=== PATIENT | male | born 1975 | race Caucasian/White ===

== ENCOUNTER 2018-05-18 14:14 | Inpatient (IN) | payer SELFPAY ==
[2018-05-18 16:47] VITALS: BMI 27.1
--- NOTE | 2018-05-18 17:34 | HP ---
CIWA Score - CIWA Score Nausea/Vomitin Muscle Tremors: 4-Moderate,w/Arms Extend Anxiety: 3 Agitation: 3 Paroxysmal Sweats: 2 Orientation: 0-Oriented Tacttile Disturbances: 0-None Auditory Disturbances: 0-None Visual Disturbances: 0-None Headache: 1-Very Mild CIWA-Ar Total Score: 16 Admission ROS BHS - HPI Chief Complaint: " I am drinking more now, and I can't control it" alcohol withdrawal symptoms Allergies/Adverse Reactions: Allergies Allergy/AdvReac Type Severity Reaction Status Date / Time No Known Allergies Allergy Verified 05/18/18 17:18 History of Present Illness: 42 yo male with hx of alcohol dependence is here voluntarily seeking detox. Patient reports this is his first time seeking treatment. Denies any medical problems or psychiatric dx at this time. Denies suicidal / homicidal ideation, denies any hx of suicide attempt. Denies hx of black outs or seizures. Denies any legal troubles at this time. Exam Limitations: No Limitations - Ebola screening Have you traveled outside of the country in the last 21 days: No Have you had contact with anyone from an Ebola affected area: No Have you been sick,other than usual withdrawal symptoms: No Do you have a fever: No - Review of Systems Constitutional: Chills, Loss of Appetite, Weakness, Unintentional Wgt. Loss (5 lb) EENT: reports: Other (decrease vision left eye) Respiratory: reports: No Symptoms reported Cardiac: reports: No Symptoms Reported GI: reports: Nausea, Poor Appetite, Poor Fluid Intake, Indigestion, Abdominal cramping : reports: No Symptoms Reported Musculoskeletal: reports: No Symptoms Reported Integumentary: reports: No Symptoms Reported Neuro: reports: Headache, Tremors Endocrine: reports: Increased Thirst Hematology: reports: No Symptoms Reported Psychiatric: reports: Judgement Intact, Mood/Affect Appropiate, Orientated x3, Anxious Other Systems: Reviewed and Negative Patient History - Patient Medical History Hx Anemia: No Hx Asthma: No Hx Chronic Obstructive Pulmonary Disease (COPD): No Hx Cancer: No Hx Cardiac Disorders: No Hx Congestive Heart Failure: No Hx Hypertension: No Hx Hypercholesterolemia: No Hx Pacemaker: No HX Cerebrovascular Accident: No Hx Seizures: No Hx Dementia: No Hx Diabetes: No Hx Gastrointestinal Disorders: No Hx Liver Disease: No Hx Genitourinary Disorders: No Hx Sexually Transmitted Disorders: No Hx Renal Disease (ESRD): No Hx Thyroid Disease: No Hx Human Immunodeficiency Virus (HIV): No (reports last tested in 2007 with neg ) Hx Hepatitis C: No Hx Depression: No Hx Suicide Attempt: No Hx Bipolar Disorder: No Hx Schizophrenia: No - Patient Surgical History Past Surgical History: Yes Hx Neurologic Surgery: No Hx Cataract Extraction: No Hx Cardiac Surgery: No Hx Lung Surgery: No Hx Breast Surgery: No Hx Breast Biopsy: No Hx Abdominal Surgery: No Hx Appendectomy: No Hx Cholecystectomy: No Hx Genitourinary Surgery: No Hx Section: No Hx Orthopedic Surgery: No Other Surgical History: fx/lacerated wound, right index finger in 2006 Anesthesia Reaction: No - PPD History Previous Implant?: Yes Documented Results: Negative w/o proof Implanted On Prior [facility] Admission?: No PPD to be Administered?: Yes - Smoking Cessation Smoking history: Former smoker Have you smoked in the past 12 months: No If you are a former smoker, when did you quit?: 20 yrs. ago Hx Chewing Tobacco Use: No Initiated information on smoking cessation: No - Substance & Tx. History Hx Alcohol Use: Yes Hx Substance Use: Yes Substance Use Type: Alcohol Hx Substance Use Treatment: No - Substances Abused Alcohol-beerwhisky Route: Oral Frequency: Daily Amount used: 1 pt. Age of first use: 14 Date of Last Use: 05/16/18 Family Disease History - Family Disease History Family History: Denies Admission Physical Exam BHS - Vital Signs Vital Signs: Vital Signs - 24 hr 05/18/18 16:46 Temperature 98.7 F Pulse Rate 116 H Respiratory 18 Rate Blood Pressure 148/102 H - Physical General Appearance: Yes: Appropriately Dressed, Thin, Tremorous, Sweating HEENTM: Yes: EOMI, Hearing grossly Normal, Normal ENT Inspection, Normocephalic , Normal Voice, DEANNA, Pharynx Normal, Tm's normal, Other (left eye decrease vision) Respiratory: Yes: Chest Non-Tender, Lungs Clear, Normal Breath Sounds, No Respiratory Distress, No Accessory Muscle Use Neck: Yes: Within Normal Limits Breast: Yes: Breast Exam Deferred Cardiology: Yes: Regular Rhythm, Tachycardia Abdominal: Yes: Normal Bowel Sounds, Non Tender, Flat, Soft Genitourinary: Yes: Within Normal Limits Back: Yes: Normal Inspection Musculoskeletal: Yes: full range of Motion, Gait Steady, Pelvis Stable Extremities: Yes: Normal Capillary Refill, Normal Inspection, Normal Range of Motion, Non-Tender 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, Fully Oriented, Alert, Motor Strength 5/5, Depressed Affect Integumentary: Yes: Normal Color, Warm, Diaphoresis Lymphatic: Yes: Within Normal Limits - Diagnostic (1) Alcohol dependence with withdrawal Current Visit: Yes Status: Acute Qualifiers: Complication of substance-induced condition: uncomplicated Qualified Code(s ): F10.230 - Alcohol dependence with withdrawal, uncomplicated (2) 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
[2018-05-18] MEDS ORDERED: P-EPHED 60MG/TRIPROLIDI 2.5MG TABLET PO PRN (18:13)
[2018-05-18] MEDS ORDERED: ACETAMINOPHEN 325 MG TABLET (FP) PO PRN (18:13)
[2018-05-18] MEDS ORDERED: MENTHOL/PHENOL 1 EACH UD MM PRN (18:13)
[2018-05-18] MEDS ORDERED: MAGNESIUM HYDROX 2400MG/30ML ORAL SUSPENSION 30 ML CUP PO PRN (18:13)
[2018-05-18] MEDS ORDERED: LOPERAMIDE HCL 2 MG CAPSULE PO PRN (18:13)
[2018-05-18] MEDS ORDERED: MAG HYDROX/AL HYDROX/SIMETH 30 ML UNIT-DOSE CUP PO PRN (18:13)
[2018-05-18] MEDS ORDERED: IBUPROFEN 400 MG TABLET (FP) PO PRN (18:13)
[2018-05-18] MEDS ORDERED: guaiFENesin/D-METHORPHAN HB 10 ML UNIT-DOSE CUPS PO PRN (18:13)
[2018-05-18] MEDS ORDERED: MAGNESIUM CITRATE 300 ML BOTTLE PO PRN (18:13)
[2018-05-18] MEDS ORDERED: chlordiazePOXIDE HCL 25 MG CAPSULE PO PRN (18:13)
[2018-05-18] MEDS ORDERED: chlordiazePOXIDE HCL 25 MG CAPSULE PO ONE (19:00)
[2018-05-18] MEDS: THIAMINE HCL 100 MG TABLET (FP) PO SCH (22:28)
[2018-05-18] MEDS: MELATONIN 5 MG TABLETS PO PRN (22:28)
[2018-05-18] MEDS: chlordiazePOXIDE HCL 25 MG CAPSULE PO SCH (22:28)
[2018-05-18 23:10] LABS: URINE APPEARANCE CLEAR; URINE BILIRUBIN NEGATIVE (<2.0 mg/dL); URINE COLOR AMBER; URINE GLUCOSE (UA) NEGATIVE (NEGATIVE); URINE KETONE 1+ (NEGATIVE); URINE LEUK ESTERASE NEGATIVE (NEGATIVE); URINE NITRITE NEGATIVE (NEGATIVE); URINE PROTEIN 1+ (NEGATIVE)
[2018-05-18 23:26] LABS: EPI CELLS RARE /HPF (FEW); URINE MUCUS MODERATE
[2018-05-19] MEDS: chlordiazePOXIDE HCL 25 MG CAPSULE PO SCH ×4 (05:28→22:21)
--- NOTE | 2018-05-19 09:40 | CONSULT ---
[facility] Psychiatric Consult - Data Date of interview: 05/19/18 Admission source: [facility] Identifying data: Patient is a 42 year old male, , father of three, domiciled, and currently employed. This is patient's first admission to detox at [facility]. Patient admitted to for alcohol dependence. Substance Abuse History: Smoking Cessation. Smoking history: Former smoker. Have you smoked in the past 12 months: No. If you are a former smoker, when did you quit?: 20 yrs. ago. Hx Chewing Tobacco Use: No. Initiated information on smoking cessation: No. - Substance & Tx. History. Hx Alcohol Use: Yes. Hx Substance Use: Yes. Substance Use Type: Alcohol. Hx Substance Use Treatment: No. - Substances Abused. Alcohol-beerwhisky. Route: Oral. Frequency: Daily. Amount used: 1 pt. Age of first use: 14. Date of Last Use: 05/16/18 Medical History: fx/lacerated wound, right index finger in 2005 Psychiatric History: Patient denies h/o psychiatric hospitalization, outpatient care, and suicide attempt. Physical/Sexual Abuse/Trauma History: denies. Mental Status Exam - Mental Status Exam Alert and Oriented to: Time, Place, Person Cognitive Function: Good Patient Appearance: Well Groomed Mood: Euthymic Affect: Mood Congruent Patient Behavior: Cooperative Speech Pattern: Appropriate Voice Loudness: Normal Thought Process: Intact, Goal Oriented Thought Disorder: Not Present Hallucinations: Denies Suicidal Ideation: Denies Homicidal Ideation: Denies Insight/Judgement: Poor Sleep: Fair Appetite: Fair Muscle strength/Tone: Normal Gait/Station: Normal Psychiatric Findings - Problem List (Parks 1, 2,3) (1) Alcohol dependence with withdrawal Current Visit: Yes Status: Acute Qualifiers: Complication of substance-induced condition: uncomplicated Qualified Code(s ): F10.230 - Alcohol dependence with withdrawal, uncomplicated - Initial Treatment Plan Initial Treatment Plan: Psychoeducation provided. Detoxification in progress. Observation.
--- NOTE | 2018-05-19 09:43 | EKG ---
Test Reason : Blood Pressure : / mmHG Vent. Rate : 078 BPM Atrial Rate : 078 BPM P-R Int : 154 ms QRS Dur : 086 ms QT Int : 338 ms P-R-T Axes : 052 014 028 degrees QTc Int : 385 ms NORMAL SINUS RHYTHM NORMAL ECG NO PREVIOUS ECGS AVAILABLE Confirmed by CATARINO MCMILLAN MD ([id number]) on 05/19/2018 9:42:45 AM Referred By: Confirmed By:CATARINO MCMILLAN MD
[2018-05-19] MEDS: PRENATAL VITAMINS W/ FOLIC ACID TABLET (FP) PO SCH (10:28)
[2018-05-19 10:37] LABS: HEMATOCRIT 43.1 % (35.4-49); HEMOGLOBIN 14.7 GM/dL (11.7-16.9); MCH 31.8 pg (25.7-33.7); MCHC 34.2 g/dl (32.0-35.9); MEAN PLT VOLUME 8.4 fl (7.5-11.1); PLATELET COUNT 296 K/MM3 (134-434); RBC 4.63 M/mm3 (4.00-5.60); RDW 12.9 % (11.9-15.9); WHITE BLOOD COUNT 4.6 K/mm3 (4.0-10.0)
[2018-05-19 10:48] LABS: ALBUMIN 3.5 g/dl (3.4-5.0); ALK PHOS 89 U/L (45-117); ANION GAP 10 MMOL/L (8-16); BILIRUBIN,TOTAL 0.7 mg/dL (0.2-1); BLOOD UREA NITROGEN 6 mg/dL (7-18); CALCIUM 8.8 mg/dL (8.5-10.1); CHLORIDE 103 mmol/L (98-107); CO2 28 mmol/L (21-32); CREATININE 0.8 mg/dL (0.55-1.3); GLUCOSE,RANDOM 89 mg/dL (74-106); POTASSIUM 3.9 mmol/L (3.5-5.1); SGOT/AST 35 U/L (15-37); SGPT/ALT 58 U/L (13-61); SODIUM 141 mmol/L (136-145); TOT PROT 6.8 g/dl (6.4-8.2)
--- NOTE | 2018-05-19 15:30 | PN ---
S CIWA - CIWA Score Nausea/Vomitin Muscle Tremors: 4-Moderate,w/Arms Extend Anxiety: 4-Mod. Anxious/Guarded Agitation: 3 Paroxysmal Sweats: 3 Orientation: 0-Oriented Tacttile Disturbances: 0-None Auditory Disturbances: 0-None Visual Disturbances: 0-None Headache: 1-Very Mild CIWA-Ar Total Score: 17 BHS Progress Note (SOAP) Subjective: Tremor, headache, chills Objective: 05/19/18 15:27 Last Vital Signs Temp Pulse Resp BP Pulse Ox 98.3 F 105 H 18 104/70 05/19/18 13:59 05/19/18 13:59 05/19/18 13:59 05/19/18 13:59 Laboratory Tests 05/18/18 05/19/18 05/19/18 21:04 07:00 07:00 WBC 4.6 RBC 4.63 Hgb 14.7 Hct 43.1 MCV 93.0 MCH 31.8 MCHC 34.2 RDW 12.9 Plt Count 296 MPV 8.4 Sodium 141 Potassium 3.9 Chloride 103 Carbon Dioxide 28 Anion Gap 10 BUN 6 L Creatinine 0.8 Creat Clearance w eGFR > 60 Random Glucose 89 Calcium 8.8 Total Bilirubin 0.7 AST 35 ALT 58 Alkaline Phosphatase 89 Total Protein 6.8 Albumin 3.5 Urine Color Radha Urine Appearance Clear Urine pH 7.0 Ur Specific [place] 1.024 Urine Protein 1+ H Urine Glucose (UA) Negative Urine Ketones 1+ H Urine Blood Negative Urine Nitrite Negative Urine Bilirubin Negative Urine Urobilinogen 2.0 Ur Leukocyte Esterase Negative Urine WBC (Auto) 2 Urine RBC (Auto) <1 Ur Epithelial Cells Rare Urine Mucus Moderate RPR Titer 05/19/18 07:00 WBC RBC Hgb Hct MCV MCH MCHC RDW Plt Count MPV Sodium Potassium Chloride Carbon Dioxide Anion Gap BUN Creatinine Creat Clearance w eGFR Random Glucose Calcium Total Bilirubin AST ALT Alkaline Phosphatase Total Protein Albumin Urine Color Urine Appearance Urine pH Ur Specific [place] Urine Protein Urine Glucose (UA) Urine Ketones Urine Blood Urine Nitrite Urine Bilirubin Urine Urobilinogen Ur Leukocyte Esterase Urine WBC (Auto) Urine RBC (Auto) Ur Epithelial Cells Urine Mucus RPR Titer Nonreactive Labs reviewed: abnormal UA Assessment: 05/19/18 15:28 Withdrawal symptoms Noted with abnormal UA Plan: Continue detox Abnormal UA: encouraged PO water intake, repeat UA
[2018-05-19] MEDS: THIAMINE HCL 100 MG TABLET (FP) PO SCH (22:21)
[2018-05-19] MEDS: MELATONIN 5 MG TABLETS PO PRN (22:21)
[2018-05-20] MEDS: chlordiazePOXIDE HCL 25 MG CAPSULE PO SCH ×3 (06:09→17:57)
[2018-05-20] MEDS: PRENATAL VITAMINS W/ FOLIC ACID TABLET (FP) PO SCH (10:41)
--- NOTE | 2018-05-20 12:56 | PN ---
[facility] CIWA - CIWA Score Nausea/Vomitin-No Nausea/No Vomiting Muscle Tremors: 2 Anxiety: 3 Agitation: 3 Paroxysmal Sweats: 2 Orientation: 0-Oriented Tacttile Disturbances: 1-Very Mild Itch/Numbness Auditory Disturbances: 0-None Visual Disturbances: 0-None Headache: 0-None Present CIWA-Ar Total Score: 11 S Progress Note (SOAP) Subjective: interrupted sleep, anxious Objective: 05/20/18 12:55 Vital Signs Temperature 97.2 F L 05/20/18 10:11 Pulse Rate 85 05/20/18 10:11 Respiratory Rate 18 05/20/18 10:11 Blood Pressure 101/69 05/20/18 10:11 O2 Sat by Pulse Oximetry (%) Laboratory Last Values WBC 4.6 K/mm3 (4.0-10.0) 05/19/18 07:00 RBC 4.63 M/mm3 (4.00-5.60) 05/19/18 07:00 Hgb 14.7 GM/dL (11.7-16.9) 05/19/18 07:00 Hct 43.1 % (35.4-49) 05/19/18 07:00 MCV 93.0 fl (80-96) 05/19/18 07:00 MCH 31.8 pg (25.7-33.7) 05/19/18 07:00 MCHC 34.2 g/dl (32.0-35.9) 05/19/18 07:00 RDW 12.9 % (11.9-15.9) 05/19/18 07:00 Plt Count 296 K/MM3 (134-434) 05/19/18 07:00 MPV 8.4 fl (7.5-11.1) 05/19/18 07:00 Sodium 141 mmol/L (136-145) 05/19/18 07:00 Potassium 3.9 mmol/L (3.5-5.1) 05/19/18 07:00 Chloride 103 mmol/L (98-107) 05/19/18 07:00 Carbon Dioxide 28 mmol/L (21-32) 05/19/18 07:00 Anion Gap 10 MMOL/L (8-16) 05/19/18 07:00 BUN 6 mg/dL (7-18) L 05/19/18 07:00 Creatinine 0.8 mg/dL (0.55-1.3) 05/19/18 07:00 Creat Clearance w eGFR > 60 (>60) 05/19/18 07:00 Random Glucose 89 mg/dL (74-106) 05/19/18 07:00 Calcium 8.8 mg/dL (8.5-10.1) 05/19/18 07:00 Total Bilirubin 0.7 mg/dL (0.2-1) 05/19/18 07:00 AST 35 U/L (15-37) 05/19/18 07:00 ALT 58 U/L (13-61) 05/19/18 07:00 Alkaline Phosphatase 89 U/L (45-117) 05/19/18 07:00 Total Protein 6.8 g/dl (6.4-8.2) 05/19/18 07:00 Albumin 3.5 g/dl (3.4-5.0) 05/19/18 07:00 Urine Color Radha 05/18/18 21:04 Urine Appearance Clear 05/18/18 21:04 Urine pH 7.0 (5.0-8.0) 05/18/18 21:04 Ur Specific [place] 1.024 (1.010-1.035) 05/18/18 21:04 Urine Protein 1+ (NEGATIVE) H 05/18/18 21:04 Urine Glucose (UA) Negative (NEGATIVE) 05/18/18 21: Urine Ketones 1+ (NEGATIVE) H 05/18/18 21:04 Urine Blood Negative (NEGATIVE) 05/18/18 21: Urine Nitrite Negative (NEGATIVE) 05/18/18 21: Urine Bilirubin Negative (<2.0 mg/dL) 05/18/18 21: Urine Urobilinogen 2.0 mg/dL (0.2-1.0) 05/18/18 21:04 Ur Leukocyte Esterase Negative (NEGATIVE) 05/18/18 21: Urine WBC (Auto) 2 /hpf (3-5) 05/18/18 21:04 Urine RBC (Auto) <1 /hpf (0-3) 05/18/18 21:04 Ur Epithelial Cells Rare /HPF (FEW) 05/18/18 21: Urine Mucus Moderate 05/18/18 21:04 RPR Titer Nonreactive (NONREACTIVE) 05/19/18 07:00 AOx3 no distress ambulating in the unit Assessment: 05/20/18 12:55 withdrawal sx Plan: increase fluids continue detox continue to monitor
[2018-05-20] MEDS: THIAMINE HCL 100 MG TABLET (FP) PO SCH (22:40)
[2018-05-20] MEDS: chlordiazePOXIDE 5 MG CAPSULE PO SCH (22:41)
[2018-05-20] MEDS: MELATONIN 5 MG TABLETS PO PRN (22:42)
[2018-05-21] MEDS: chlordiazePOXIDE 5 MG CAPSULE PO SCH ×3 (06:07→17:50)
[2018-05-21] MEDS: PRENATAL VITAMINS W/ FOLIC ACID TABLET (FP) PO SCH (10:29)
--- NOTE | 2018-05-21 16:48 | PN ---
BHS Progress Note (SOAP) Subjective: Dizziness, anxious Objective: 05/21/18 16:47 Last Vital Signs Temp Pulse Resp BP Pulse Ox 96.1 F L 101 H 18 99/70 05/21/18 10:38 05/21/18 10:38 05/21/18 10:38 05/21/18 10:38 Laboratory Tests 05/18/18 05/19/18 05/19/18 21:04 07:00 07:00 WBC 4.6 RBC 4.63 Hgb 14.7 Hct 43.1 MCV 93.0 MCH 31.8 MCHC 34.2 RDW 12.9 Plt Count 296 MPV 8.4 Sodium 141 Potassium 3.9 Chloride 103 Carbon Dioxide 28 Anion Gap 10 BUN 6 L Creatinine 0.8 Creat Clearance w eGFR > 60 Random Glucose 89 Calcium 8.8 Total Bilirubin 0.7 AST 35 ALT 58 Alkaline Phosphatase 89 Total Protein 6.8 Albumin 3.5 Urine Color Radha Urine Appearance Clear Urine pH 7.0 Ur Specific [place] 1.024 Urine Protein 1+ H Urine Glucose (UA) Negative Urine Ketones 1+ H Urine Blood Negative Urine Nitrite Negative Urine Bilirubin Negative Urine Urobilinogen 2.0 Ur Leukocyte Esterase Negative Urine WBC (Auto) 2 Urine RBC (Auto) <1 Ur Epithelial Cells Rare Urine Mucus Moderate RPR Titer 05/19/18 07:00 WBC RBC Hgb Hct MCV MCH MCHC RDW Plt Count MPV Sodium Potassium Chloride Carbon Dioxide Anion Gap BUN Creatinine Creat Clearance w eGFR Random Glucose Calcium Total Bilirubin AST ALT Alkaline Phosphatase Total Protein Albumin Urine Color Urine Appearance Urine pH Ur Specific [place] Urine Protein Urine Glucose (UA) Urine Ketones Urine Blood Urine Nitrite Urine Bilirubin Urine Urobilinogen Ur Leukocyte Esterase Urine WBC (Auto) Urine RBC (Auto) Ur Epithelial Cells Urine Mucus RPR Titer Nonreactive Labs reviewed: abnormal UA (reordered for repeat but no specimen submitted) Assessment: 05/21/18 16:47 Withdrawal symptoms Plan: Continue detox Encouraged PO water intake Follow up with PCP regarding abnormal lab result Patient is for discharge tomorrow
[2018-05-21] MEDS: THIAMINE HCL 100 MG TABLET (FP) PO SCH (22:21)
[2018-05-21] MEDS: MELATONIN 5 MG TABLETS PO PRN (22:22)
[2018-05-21] MEDS: chlordiazePOXIDE HCL 10 MG CAPSULE PO SCH (22:22)
[2018-05-22] MEDS: chlordiazePOXIDE HCL 10 MG CAPSULE PO SCH (05:26)
[2018-05-22 09:15] VITALS: BP 102/72; PULSE 101; TEMP 97.9
[2018-05-22 10:24] LABS: URINE APPEARANCE CLEAR; URINE BILIRUBIN NEGATIVE (<2.0 mg/dL); URINE COLOR LTYELLOW; URINE GLUCOSE (UA) NEGATIVE (NEGATIVE); URINE KETONE NEGATIVE (NEGATIVE); URINE LEUK ESTERASE NEGATIVE (NEGATIVE); URINE NITRITE NEGATIVE (NEGATIVE); URINE PROTEIN NEGATIVE (NEGATIVE); URINE UROBILINOGEN NEGATIVE mg/dL (0.2-1.0)
[2018-05-22] MEDS: PRENATAL VITAMINS W/ FOLIC ACID TABLET (FP) PO SCH (10:32)
--- NOTE | 2018-05-22 11:41 | DS ---
[facility] Detox Discharge Summary Admission Date: 05/18/18 Discharge Date: 05/22/18 - History Present History: Alcohol Dependence Pertinent Past History: Alcohol dependence Impaired vision left eye - Physical Exam Results Vital Signs: Vital Signs Temperature 97.9 F 05/22/18 09:14 Pulse Rate 101 H 05/22/18 09:14 Respiratory Rate 18 05/22/18 09:14 Blood Pressure 102/72 05/22/18 09:14 O2 Sat by Pulse Oximetry (%) Pertinent Admission Physical Exam Findings: Withdrawal symptoms Laboratory Tests 05/18/18 05/19/18 05/19/18 21:04 07:00 07:00 WBC 4.6 RBC 4.63 Hgb 14.7 Hct 43.1 MCV 93.0 MCH 31.8 MCHC 34.2 RDW 12.9 Plt Count 296 MPV 8.4 Sodium 141 Potassium 3.9 Chloride 103 Carbon Dioxide 28 Anion Gap 10 BUN 6 L Creatinine 0.8 Creat Clearance w eGFR > 60 Random Glucose 89 Calcium 8.8 Total Bilirubin 0.7 AST 35 ALT 58 Alkaline Phosphatase 89 Total Protein 6.8 Albumin 3.5 Urine Color Radha Urine Appearance Clear Urine pH 7.0 Ur Specific [place] 1.024 Urine Protein 1+ H Urine Glucose (UA) Negative Urine Ketones 1+ H Urine Blood Negative Urine Nitrite Negative Urine Bilirubin Negative Urine Urobilinogen 2.0 Ur Leukocyte Esterase Negative Urine WBC (Auto) 2 Urine RBC (Auto) <1 Ur Epithelial Cells Rare Urine Mucus Moderate RPR Titer 05/19/18 05/22/18 07:00 08:00 WBC RBC Hgb Hct MCV MCH MCHC RDW Plt Count MPV Sodium Potassium Chloride Carbon Dioxide Anion Gap BUN Creatinine Creat Clearance w eGFR Random Glucose Calcium Total Bilirubin AST ALT Alkaline Phosphatase Total Protein Albumin Urine Color Ltyellow Urine Appearance Clear Urine pH 7.0 Ur Specific [place] 1.011 Urine Protein Negative Urine Glucose (UA) Negative Urine Ketones Negative Urine Blood Negative Urine Nitrite Negative Urine Bilirubin Negative Urine Urobilinogen Negative Ur Leukocyte Esterase Negative Urine WBC (Auto) Urine RBC (Auto) Ur Epithelial Cells Urine Mucus RPR Titer Nonreactive Labs reviewed - Treatment Hospital Course: Detox Protocol Followed, Detoxed Safely, Responded well, Discharged Condition Good - Medication Discharge Medications: Ambulatory Orders NK [No Known Home Medication] 05/18/18 - Diagnosis (1) Abnormal finding on urinalysis Status: Resolved (2) Alcohol dependence with withdrawal Status: Acute Qualifiers: Complication of substance-induced condition: uncomplicated Qualified Code(s ): F10.230 - Alcohol dependence with withdrawal, uncomplicated (3) Visual impairment of left eye Status: Chronic - AMA Did Patient Leave Against Medical Advice: No (F/U with your PCP within 1 to 2 weeks)
== END 2018-05-22 10:38 | disposition home or self-care (01) | DRG 775 ==
LOC: YASAS 14:14 → Y3N 18:18
PROC: HZ2ZZZZ Detoxification Services for Substance Abuse Treatment (ICD-10-PCS; principal; 2018-05-18)
DX: F10.230 Alcohol dependence with withdrawal, uncomplicated (principal); H54.7 Unspecified visual loss; R82.90 Unspecified abnormal findings in urine; Z87.891 Personal history of nicotine dependence
CPT/HCPCS: 36415; 80053; 81003; 81015; 85027; 86593; 93005; 93010